=== PATIENT | male | born 1975 | race Hispanic/Latino ===

== ENCOUNTER 2017-12-07 03:30 | Inpatient (IN) | payer SELFPAY ==
[2017-12-07 04:27] LABS: #Basophils 0.1 thou/uL (0.0-0.2); #Eosinphils 0.1 thou/uL (0.0-0.7); #Lymphocytes 2.4 thou/uL (1.20-3.40); #Monocytes 1.4 thou/uL (0.11-0.59); #Neutrophils 9.5 thou/uL (1.40-6.50); %Basophils 0.4 % (0.0-1.0); %Eosinophils 0.4 % (0.0-10.0); %Lymphocytes 18.2 % (21.0-51.0); %Monocytes 10.1 % (0.0-10.0); %Neutrophils 70.9 % (42.0-75.0); Hemoglobin 16.6 g/dL (14.0-18.0); Mean Corpuscular HGB CONC 35.4 g/dL (32.0-36.0); Mean Corpuscular Hemoglobin 35.7 pg (27.0-31.0); Mean Platelet Volume 7.7 fL (7.4-10.4); Platelet Count 211 thou/uL (130-400); RBC Distribution Width 11.2 % (11.5-14.5); Red Blood Cell (RBC) Count 4.65 mill/uL (4.70-6.10); White Blood Cell (WBC) Count 13.3 thou/uL (4.8-10.8)
[2017-12-07] MEDS ORDERED: Fentanyl 100 MCG/2 ML VIAL ONE ×2 (04:35→16:28)
[2017-12-07 05:01] LABS: Anion Gap 10 mmol/L (10-20); BUN (Urea Nitrogen) 8 mg/dL (8.9-20.6); Calc. Creatinine Clearance 0 mL/min (70-130); Calcium 9.6 mg/dL (7.8-10.44); Carbon Dioxide 25 mmol/L (22-29); Chloride 105 mmol/L (98-107); Estimated GFR-MDRD Greater than 90; Glucose 117 mg/dL (70-105); Sodium 136 mmol/L (136-145)
[2017-12-07] MEDS ORDERED: Ondansetron ODT 4 MG TAB ONE (05:59)
[2017-12-07] MEDS ORDERED: Clindamycin/D5W 900 mg/50 ml Premix Bag ONE (05:59)
[2017-12-07] MEDS ORDERED: Morphine 4 MG/ML VIAL ONE (05:59)
[2017-12-07 06:03] LABS: PTT 34.8 SEC (22.9-36.1); Prothrombin Time 13.7 SEC (12.0-14.7)
--- NOTE | 2017-12-07 06:28 | PDOC.FPRHP ---
- History of Present Illness Chief Complaint: Throat pain History of Present Illness: 42 yo M w/no medical hx presents to the ED with complaint of throat pain and swelling. He states that the pain started with a tooth ache on the right side of his mouth on Wednesday. He attempted to control his symptoms with oragel and motrin however the pain and swelling progressively got worse. Additionally, he began to have significant swelling with swallowing. He denies fever, chills, difficulty breathing, feeling like his throat is swelling. He has never had similar symptoms. Upon presentation to the ED a CT neck found submandibular abscess and sialadenitis. ED doc called OMFS who recommended admission for surgical I&D. Pt was given Fentanyl and morphine for pain and started on Clinda 900 q8 per OMFS recommendation. - Allergies/Adverse Reactions Allergies Allergy/AdvReac Type Severity Reaction Status Date / Time No Allergy Information Allergy Unverified 12/07/17 06:41 Available - History PMHx: No significant medical hx PSHx: None FHx: Unk Social: 15 pack year smoking hx 6 beers per day distant hx of cocaine use - Review of Systems General: denies: fever/chills, weight/appetite/sleep changes Eyes: denies: eye pain, vision changes ENT: reports: other (complains of pain with swallowing and throat/jaw swelling) . denies: nasal congestion, rhinorrhea Respiratory: denies: cough, congestion, shortness of breath Cardiovascular: denies: chest pain, palpitation Gastrointestinal: denies: nausea, vomiting Skin: denies: rashes, lesions Musculoskeletal: denies: pain, tenderness Neurological: denies: numbness, syncope Psychological: denies: anxiety, depression - Vital signs BP: 139/98 HR: 84 RR: 19 Tmax: 99 Pox: 99% on RA Wt: 85 kg - Physical Exam Constitutional: NAD, awake, alert and oriented, well developed HEENT: PERRLA, EOMI, grossly normal vision, grossly normal hearing -HEENT: Significant submandibular -Neck: Tender L anterior lymphadenopathy. Heart: RRR, normal S1/S2, no murmurs/rubs/gallops Lungs: CTAB, no respiratory distress Abdomen: soft, non-tender, bowel sounds present Musculoskeletal: normal structure, normal tone Neurological: no focal deficit, CN II-XII intact Skin: no rash/lesions, good turgor Heme/Lymphatic: no unusual bruising or bleeding, no purpura Psychiatric: normal mood and affect, good judgment and insight FMR H&P: Results - Labs Result Diagrams: 12/07/17 04:15 12/07/17 04:15 Lab results: WBC 13.3 thou/uL (4.8-10.8) H 12/07/17 04:15 Hgb 16.6 g/dL (14.0-18.0) 12/07/17 04:15 Hct 46.9 % (42.0-52.0) 12/07/17 04:15 MCV 101.0 fl (80.0-94.0) H 12/07/17 04:15 Plt Count 211 thou/uL (130-400) 12/07/17 04:15 Neutrophils % 70.9 % (42.0-75.0) 12/07/17 04:15 Sodium 136 mmol/L (136-145) 12/07/17 04:15 Potassium 4.0 mmol/L (3.5-5.1) 12/07/17 04:15 Chloride 105 mmol/L (98-107) 12/07/17 04:15 Carbon Dioxide 25 mmol/L (22-29) 12/07/17 04:15 BUN 8 mg/dL (8.9-20.6) L 12/07/17 04:15 Creatinine 0.78 mg/dL (0.6-1.3) 12/07/17 04:15 Glucose 117 mg/dL (70-105) H 12/07/17 04:15 Calcium 9.6 mg/dL (7.8-10.44) 12/07/17 04:15 - EKG Interpretation EKG: NSR, no ST or T wave changes - Radiology Interpretation CT scan - head Status: image reviewed by me, report reviewed by me ( acute right submandibular sialadentitis and floor of mouth abscess, possible sialolithiasis.) FMR H&P: A/P - Problem List (1) Submandibular abscess Current Visit: Yes Status: Acute Priority: High Code(s): K12.2 - CELLULITIS AND ABSCESS OF MOUTH (2) Sialadenitis Current Visit: Yes Status: Acute Priority: High Code(s): K11.20 - SIALOADENITIS, UNSPECIFIED (3) ETOH abuse Current Visit: Yes Status: Chronic Priority: Medium Code(s): F10.10 - ALCOHOL ABUSE, UNCOMPLICATED (4) Tobacco abuse Current Visit: Yes Status: Chronic Priority: Medium Code(s): Z72.0 - TOBACCO USE (5) HTN (hypertension) Current Visit: Yes Status: Acute Priority: Medium Code(s): I10 - ESSENTIAL (PRIMARY) HYPERTENSION (6) Leukocytosis Current Visit: Yes Status: Acute Priority: Medium Code(s): D72.829 - ELEVATED WHITE BLOOD CELL COUNT, UNSPECIFIED - Plan Submandibular abscess and R submandibular sialadentitis - OMFS was consulted from ED. Dr Freed plans to operate this afternoon per ED doc. - NPO now, continue Clinda - morphine for pain control - NS at 125 HTN - secondary to pain. Will work to control pain and monitor vitals Leukocytosis - secondary to infection. Abx as above. Monitor CBC Etoh abuse - ase protocol tobacco abuse - adolescent counselor on cessation Diet NPO PPx SCD Code Full Dispo: Pt is currently stable and awaiting surgical intervention. FMR H&P: Upper Level - Pertinent history 3 day history of increasing jaw pain with progressive dysphagia. Does not have PCP. 6 pack of beer daily and 1/2 pack of cigarettes daily. - Pertinent findings GEN: no acute distress, lying in bed ENT: submandibular tenderness b/l, limited jaw movement. Edema noted in oropharynx CARDIO: RRR, no MRG RESP: no distress, lungs CTA, no wheezing or stridor Abdomen: nontender nondistended. MSK: no LE edema, MAEW - Plan Date/Time: 12/07/17 5005 ISha, have evaluated this patient and agree with findings/plan as outlined by actuarial intern resident. Pertinent changes/additions are listed here. #Submandibular abscess and R sialolithisais. On IV clinda and set for surgery afternoon with OMFS. No respiratory compromise and stable. #ETOH abuse - 6 beers daily, monitor for withdrawal symptoms and medicate as needed. #Tobacco abuse - counseled to stop Attending Addendum - Attending Addendum Date/Time: 12/07/17 9437 I personally evaluated the patient and discussed the management with Dr. Trevizo. I agree with the History, Examination, Assessment and Plan documented above with any addition or exceptions noted below.
[2017-12-07] MEDS ORDERED: Dextrose 5 %-0.45 % NaCl 1,000 ML IV SCH (06:45)
[2017-12-07] MEDS ORDERED: Dexamethasone 4 MG TAB ONE (07:27)
[2017-12-07] MEDS ORDERED: Morphine 4 MG/ML VIAL SLOW IVP PRN (07:51)
[2017-12-07 07:54] VITALS: BMI 25.7
--- NOTE | 2017-12-07 07:58 | RAD ---
CHEST 1 VIEW: Date: 12/07/17 HISTORY: 42-year-old male with history of preoperative evaluation. Patient complains of swelling to throat and difficulty swallowing for several days, as well as swelli ng in groin. COMPARISON: 10/15/13. FINDINGS: Heart size is normal. The lungs are clear. There is a small, circumscribed, fairly dense opacity over lying the left upper lateral chest, possibly an artifact. I do not thing that this is within the ches t. It was not present on prior study. IMPRESSION: No acute intrathoracic disease. POS: OFF
[2017-12-07] MEDS ORDERED: Diazepam 5 MG TAB PO PRN (08:06)
[2017-12-07] MEDS ORDERED: Diazepam 5 MG TAB PO SCH (08:15)
[2017-12-07] MEDS ORDERED: Thiamine HCl 200 MG/2 ML VIAL IM SCH (08:15)
--- NOTE | 2017-12-07 09:12 | CT ---
PRELIMINARY REPORT/[facility]/EMERGENCY AFTER HOURS PROCEDURE: EXAM: CT Neck With Intravenous Contrast EXAM DATE/TIME: Exam ordered 12/07/2017 4:34 AM CLINICAL HISTORY: 42 years old, male; Pain; Neck pain and painful swallowing; Patient HX: M42 presents to ed for throat swelling. Pt reports swelling around his throat/neck for 2 days. Pt denies health complications or a llergies. TECHNIQUE: Axial computed tomography images of the neck with intravenous contrast. COMPARISON: No relevant prior studies available. FINDINGS: Oropharynx: Normal. No significant tonsillar enlargement. No peritonsillar abscess. Hypopharynx: Normal. Larynx: Normal. Normal epiglottis. Trachea: Normal. Retropharyngeal space: Normal. Submandibular/parotid glands: There is enlargement and stranding of the RIGHT submandibular gland wit h dilatation of [place]'s duct with rim enhancing collection involving the floor of mouth probably ex tending into the mylohyoid muscle and possibly into the digastric muscle inferiorly although planes are somewhat obscured. Thyroid: Normal. No enlarged or calcified nodules. Bones/joints: focal calcification seen distally at the base of the mandible possibly representing nnamdi lolithiasis. No acute fracture. Soft tissues: See above. Vasculature: No acute findings. Lymph nodes: Normal. No lymphadenopathy. Lung apices: Unremarkable as visualized. IMPRESSION: 1. Acute RIGHT submandibular sialadenitis and floor of mouth abscess as above. 2. Possible sialolithiasis as above. Thank you for allowing us to participate in the care of your patient. Dictated and Authenticated by: Devan Lam MD 12/07/2017 5:03 AM Central Time ([place] & [place]) FINAL REPORT CT NECK WITH CONTRAST: Date: 12/07/17 Multiple axial tomograms obtained through the neck with IV enhancement. FINDINGS: There is inflammation and evidence of edema involving the right submandibular gland with enlargement. There is rim enhancement along the right Cornel's duct and there is abnormal fluid dense collection seen along this duct in the right sublingual space which could represent abscess formation as noted on the preliminary report. There is cervical adenopathy with enlarged lymph nodes along the cervical chains bilaterally, more prominent on the right. I am in agreement with the preliminary report issued by [facility]. POS: ALISON
[2017-12-07] MEDS: Sodium Chloride 0.9% 1,000 ML IV SCH ×2 (09:44→20:25)
[2017-12-07] MEDS: Morphine 4 MG/ML VIAL SLOW IVP PRN ×2 (09:48→20:32)
[2017-12-07] MEDS: Folic Acid 1 MG TAB PO SCH (09:59)
[2017-12-07] MEDS: Multivitamin W/ Minerals 1 TAB PO SCH (09:59)
[2017-12-07] MEDS ORDERED: ISOVUE-370 76%-LOCM 1 ML ONE (10:58)
[2017-12-07] MEDS ORDERED: Lidocaine 1% PF 5 ML VIAL ONE (11:09)
[2017-12-07] MEDS ORDERED: Ondansetron HCl/PF 4 MG/2 ML Vial ONE (11:09)
[2017-12-07] MEDS ORDERED: Succinylcholine Chloride 20 MG/ML 10 ml SYRINGE FS ONE (11:09)
[2017-12-07] MEDS ORDERED: PROPOFOL 200 MG/20 ML VIAL ONE (11:09)
[2017-12-07] MEDS: Clindamycin/D5W 900 MG in Premix Bag 1 BAG IVPB SCH ×2 (15:35→21:49)
[2017-12-07] MEDS ORDERED: Lidocaine 1% w/Epinephrine 1:100K 30 ML VIAL ONE (16:19)
[2017-12-07] MEDS ORDERED: Chlorhexidine Gluconate 15 ML UDCUP SSP ONE (16:19)
[2017-12-07] MEDS ORDERED: Midazolam HCl 2 mg/2 ml Vial ONE (16:28)
[2017-12-07] MEDS ORDERED: Oxymetazoline HCl 0.05% ( 15 ML ) ONE (16:28)
[2017-12-07] MEDS ORDERED: Lidocaine 2% Jelly 5 ML TUBE ONE (16:42)
--- NOTE | 2017-12-07 19:10 | OP ---
DATE OF PROCEDURE: 12/07/2017 PREOPERATIVE DIAGNOSES: 1. Abscess tooth #32. 2. Right sublingual abscess. POSTOPERATIVE DIAGNOSES: 1. Abscess tooth #32. 2. Right sublingual abscess. PROCEDURES PERFORMED: 1. Extraction of tooth #32. 2. Intraoral incision and drainage of sublingual abscess. ANESTHESIA: General nasoendotracheal anesthesia. INDICATIONS FOR PROCEDURE: The patient had a 3-day history of worsening tooth pain and swelling with CT confirmation of odontogenic abscess with small fluid collection requiring intervention in the ope rating room. The risks, benefits, and alternatives of the procedure were discussed with the patient in detail. Patient agrees with the plan for operative intervention and informed consent was obtained . PROCEDURE PERFORMED: Patient was transferred to the operating room and to the OR table where a safet y belt was secured. ASA monitors were attached and the patient was noted to have stable vital signs. IV induction by Anesthesia with nasoendotracheal intubation x1 without complication. The tube was secured in a standard head wrap fashion and a timeout was performed. The patient was prepped and adrianna ped in a sterile fashion. The oropharynx was thoroughly suctioned. A moistened Ray-Geron[place] throat pack was placed. Peridex mouth rinse was used throughout the oral cavity, 1% lidocaine with 1:100,000 epi nephrine was administered as a right inferior alveolar nerve block, lingual nerve block and buccal ne rve block. A 15-blade was used for a buccal and lingual full thickness mucoperiosteal flap. Purulen ce was noted from the sulcus of tooth #32 with palpable mobility of the tooth. Simple extraction was performed with a forceps with purulence from the socket. Copious amounts of inflammatory tissue wer e curetted from the socket and there was found to be a perforation in the lingual cortical plate in t he socket of tooth #32. Blunt subperiosteal dissection was then continued down the lingual aspect of the mandible with another mild amount of purulence from the wound down to the inferior border of the mandible. Copious irrigation with normal saline was performed within the wound and a quarter inch P enrose drain was placed and secured with a 2-0 silk suture. Then, a 4-0 Vicryl suture was used for r eapproximation of the gingival flap. The oropharynx was thoroughly suctioned and the moistened Ray-T ec throat pack was removed. Gauze pack was placed for hemostasis and this concluded the procedure. The patient was turned over to Anesthesia where he was extubated in the room and returned to the PACU in stable condition. FLUIDS: See anesthesia records. ESTIMATED BLOOD LOSS: 30 mL DRAINS: Quarter-inch [place] drain to the right sublingual space. IMPLANTS: None. SPECIMENS: Cultures of the abscess were sent. IMPLANTS: None. COUNTS: Needle, sponge count verified as correct. COMPLICATIONS: None.
[2017-12-07] MEDS: Chlorhexidine Gluconate 15 ML UDCUP SSP SCH (20:25)
--- NOTE | 2017-12-07 21:16 | CON ---
DATE OF CONSULTATION: 12/07/2017 HISTORY OF PRESENT ILLNESS: This is a 42-year-old male with a reported history of tooth pain beginni ng this past Wednesday with worsening symptoms and swelling throughout the weekend leading to difficulty swallowing with neck pain leading the patient to visit the emergency room. A CT of the neck found l ocalized abscess in the floor of the mouth as well as sialadenitis. Oral Surgery was consulted for s urgical intervention. PAST MEDICAL HISTORY: Denies. MEDICATIONS: Denies. ALLERGIES: NKDA. PAST SURGICAL HISTORY: Denies. SOCIAL HISTORY: The patient reports a 1.5 packs of cigarettes per day. Alcohol six beers per day. Denies recreational drug use. Works for a construction company. REVIEW OF SYSTEMS: Reports right-sided tooth and jaw pain. Elevated floor of mouth in discomfort wh en swallowing. PHYSICAL EXAMINATION: VITAL SIGNS: Within normal limits. The patient is afebrile. GENERAL: Awake, alert, oriented in no acute distress, lying in bed comfortably. HEAD: Normocephalic. EYES: Pupils equal, round, reactive to light. Extraocular movements intact. Visual acuity grossly intact. EARS: Within normal limits. NOSE: Within normal limits. THROAT: Trach midline. HEENT: Tenderness to palpation along the right submandibular region. The inferior border of the man dible is palpable along its entire length. There is no buccal edema on the right side of the face. Intraoral exam reveals limited mandibular range of motion secondary to pain. There is a soft o n the patient is forced open. Tongue has full range of motion. The floor of mouth is edematous with no induration. There is tenderness to palpation of tooth #32. No intraoral purulence is appreciate d. LABORATORY DATA: White blood cell count 13.3, hemoglobin 16.6, hematocrit 46.9, platelets 211, gluco se 117. CT of the neck reveals periapical radiolucency associated with the roots of tooth #2 with an associated perforation into the lingual cortex. There is a small fluid collection in the floor of t he mouth with generalized edema of the floor of mouth and submandibular region as well consistent wit h the clinical findings. ASSESSMENT: A 42-year-old male with acute odontogenic abscess. PLAN: The patient will be taken to the operating room this afternoon for extraction of indicated hetal th and incision and drainage of abscess. The patient will remain n.p.o. for now. Recommend clindamy michell IV.
[2017-12-08] MEDS: Sodium Chloride 0.9% 1,000 ML IV SCH ×2 (01:45→09:11)
[2017-12-08] MEDS ORDERED: Diazepam 5 MG TAB PO PRN (04:00)
[2017-12-08] MEDS: Clindamycin/D5W 900 MG in Premix Bag 1 BAG IVPB SCH ×3 (05:11→21:05)
[2017-12-08 05:13] LABS: #Basophils 0.1 thou/uL (0.0-0.2); #Lymphocytes 2.5 thou/uL (1.20-3.40); #Monocytes 1.6 thou/uL (0.11-0.59); #Neutrophils 11.5 thou/uL (1.40-6.50); %Basophils 0.4 % (0.0-1.0); %Eosinophils 0.2 % (0.0-10.0); %Lymphocytes 15.7 % (21.0-51.0); %Monocytes 10.2 % (0.0-10.0); %Neutrophils 73.6 % (42.0-75.0); Mean Corpuscular HGB CONC 34.9 g/dL (32.0-36.0); Mean Corpuscular Hemoglobin 35.9 pg (27.0-31.0); Mean Platelet Volume 8.1 fL (7.4-10.4); Platelet Count 230 thou/uL (130-400); RBC Distribution Width 11.2 % (11.5-14.5); Red Blood Cell (RBC) Count 4.19 mill/uL (4.70-6.10); White Blood Cell (WBC) Count 15.6 thou/uL (4.8-10.8)
[2017-12-08 05:20] LABS: Anion Gap 10 mmol/L (10-20); BUN (Urea Nitrogen) 11 mg/dL (8.9-20.6); Calc. Creatinine Clearance 147 mL/min (70-130); Calcium 9.3 mg/dL (7.8-10.44); Carbon Dioxide 25 mmol/L (22-29); Chloride 106 mmol/L (98-107); Estimated GFR-MDRD Greater than 90; Glucose 120 mg/dL (70-105); Potassium 4.1 mmol/L (3.5-5.1); Sodium 137 mmol/L (136-145)
--- NOTE | 2017-12-08 07:48 | PDOC.FM ---
- Subjective Subjective: No significant overnight events. Patient reports his pain has not improved. He is having difficulty swallowing, presumably due to swelling as he does not endorse a significant amount of pain when swallowing. Patient is having difficulty opening his mouth fully 2/2 pain in submandibular region. He reports that he feels worse than he did yesterday. He has not received any pain medications this morning. - Objective MAR Reviewed: Yes Vital Signs & Weight: Vital Signs (12 hours) Temp Pulse Resp BP BP Pulse Ox 12/08/17 07:14 98.0 F 76 16 132/87 96 12/08/17 04:15 98.6 F 69 16 123/83 96 12/07/17 23:54 99.3 F 77 16 134/83 96 12/07/17 20:00 99.1 F 85 20 139/88 95 Weight Weight 83.915 kg I&O: 12/07/17 12/08/17 12/09/17 06:59 06:59 06:59 Intake Total 1815 Balance 1815 Result Diagrams: 12/08/17 04:18 12/08/17 04:18 EKG Reviewed by me: No Radiology Reviewed by me: No <Lisa Jeffers - Last Filed: 12/08/17 08:42> - Objective Vital Signs & Weight: Vital Signs (12 hours) Temp Pulse Resp BP BP BP Pulse Ox 12/08/17 11:07 98.9 F 74 16 126/82 96 12/08/17 09:06 132/87 12/08/17 08:00 98.0 F 76 16 12/08/17 07:14 98.0 F 76 16 132/87 96 12/08/17 04:15 98.6 F 69 16 123/83 96 12/07/17 23:54 99.3 F 77 16 134/83 96 Weight Weight 83.915 kg I&O: 12/07/17 12/08/17 12/09/17 06:59 06:59 06:59 Intake Total 1815 Balance 1815 Result Diagrams: 12/08/17 04:18 12/08/17 04:18 <Syd August - Last Filed: 12/08/17 11:28> Phys Exam - Physical Examination Constitutional: NAD HEENT: PERRLA, moist MMs Submandibular tenderness and swelling b/l Unable to open mouth fully, purulence where tooth extracted Neck: supple, full ROM Respiratory: no wheezing, clear to auscultation bilateral Cardiovascular: RRR, no significant murmur Gastrointestinal: soft, non-tender, no distention, positive bowel sounds Musculoskeletal: no edema, pulses present Neurological: non-focal, moves all 4 limbs Psychiatric: normal affect, A&O x 3 Skin: normal turgor, cap refill <2 seconds <Lisa Jeffers - Last Filed: 12/08/17 08:42> Dx/Plan (1) Submandibular abscess Code(s): K12.2 - CELLULITIS AND ABSCESS OF MOUTH Status: Acute (2) Sialadenitis Code(s): K11.20 - SIALOADENITIS, UNSPECIFIED Status: Acute (3) Leukocytosis Code(s): D72.829 - ELEVATED WHITE BLOOD CELL COUNT, UNSPECIFIED Status: Acute (4) HTN (hypertension) Code(s): I10 - ESSENTIAL (PRIMARY) HYPERTENSION Status: Chronic (5) ETOH abuse Code(s): F10.10 - ALCOHOL ABUSE, UNCOMPLICATED Status: Chronic (6) Tobacco abuse Code(s): Z72.0 - TOBACCO USE Status: Chronic - Plan Plan: Submandibular abscess and R submandibular sialadentitis - OMFS was consulted from ED; appreciate recs - Post op day #1 s/p extraction of tooth #32 and intraoral I&D of sublingual abscess - continue Clindamycin IV - morphine for pain control - NS at 125; can d/c once tolerating PO - Will give solumedrol 125 mg for edema HTN - likely secondary to pain - BP this AM 123/83 - Will work to control pain and monitor vitals Leukocytosis - secondary to infection - Abx as above - Monitor CBC EtoH abuse - ASE protocol - No ASE scores documented to date; will touch base with nurses to ensure this is being documented appropriately Tobacco abuse - employment counselor on cessation PPx: SCDs (pt ambulatory, non-obese, no prior history of VTE), encourage routine ambulation Code Status: Full Dispo: Pt is currently stable. Post op day #1. Further recs per OMFS. <Lisa Jeffers - Last Filed: 12/08/17 08:42> Attending Addendum - Attending Addendum Date/Time: 12/08/17 1127 I personally evaluated the patient and discussed the management with Dr. Jeffers and team. I agree with and repeated the History, Examination, Assessment and Plan documented above with any addition or exceptions noted below. Improved from this morning. He has been able to swallow food since he was prerounded on this morning. Continue antibiotics, monitor respiratory status. <Syd August - Last Filed: 12/08/17 11:28>
[2017-12-08] MEDS ORDERED: methylPREDNISolone Sod Succ/PF 125 MG/2 ML VIAL IVP SCH (08:45)
[2017-12-08] MEDS: Magnesium Oxide 400 MG TAB PO SCH (09:10)
[2017-12-08] MEDS: Folic Acid 1 MG TAB PO SCH (09:10)
[2017-12-08] MEDS: Chlorhexidine Gluconate 15 ML UDCUP SSP SCH ×2 (09:10→21:06)
[2017-12-08] MEDS: Multivitamin W/ Minerals 1 TAB PO SCH (09:10)
[2017-12-08] MEDS ORDERED: Ketorolac Tromethamine 30 MG/ML VIAL IVP SCH (13:45)
[2017-12-08] MEDS: Lactated Ringer's 1,000 ML IV SCH ×2 (16:49→21:05)
[2017-12-08] MEDS ORDERED: Ketorolac Tromethamine 30 MG/ML VIAL IVP PRN (19:00)
[2017-12-09] MEDS: Clindamycin/D5W 900 MG in Premix Bag 1 BAG IVPB SCH ×2 (05:35→14:45)
--- NOTE | 2017-12-09 08:53 | PDOC.FM ---
- Subjective Subjective: Patient doing well this AM. No significant overnight events. Patient is able to swallow with minimal difficulty. His pain has improved. Pt states that OMFS stopped by last night and told him there is a drain in place that needs to be removed today. - Objective MAR Reviewed: Yes Vital Signs & Weight: Vital Signs (12 hours) Temp Pulse Resp BP Pulse Ox 12/09/17 07:30 98.4 F 59 L 20 122/81 96 12/09/17 04:13 97.9 F 53 L 16 117/75 97 12/09/17 00:00 98.2 F 58 L 14 114/73 95 12/08/17 21:01 98.7 F 61 18 116/74 95 Weight Weight 83.915 kg I&O: 12/08/17 12/09/17 12/10/17 06:59 06:59 06:59 Intake Total 1814 1779 Balance 1814 1779 Result Diagrams: 12/08/17 04:18 12/08/17 04:18 EKG Reviewed by me: No Radiology Reviewed by me: No <Lisa Jeffers - Last Filed: 12/09/17 08:51> - Objective Vital Signs & Weight: Vital Signs (12 hours) Temp Pulse Resp BP Pulse Ox 12/09/17 07:30 98.4 F 59 L 20 122/81 96 12/09/17 04:13 97.9 F 53 L 16 117/75 97 Weight Weight 83.915 kg I&O: 12/08/17 12/09/17 12/10/17 06:59 06:59 06:59 Intake Total 1814 1779 Balance 1814 1779 Result Diagrams: 12/08/17 04:18 12/08/17 04:18 <Jeferson Lisa - Last Filed: 12/09/17 12:05> Phys Exam - Physical Examination Constitutional: NAD HEENT: PERRLA, moist MMs, sclera anicteric bilateral submandibular tenderness, able to open jaw more than yest. Neck: supple Respiratory: no wheezing, clear to auscultation bilateral Cardiovascular: RRR, no significant murmur Gastrointestinal: soft, no distention, positive bowel sounds Musculoskeletal: no edema, pulses present Neurological: non-focal, normal sensation Psychiatric: normal affect, A&O x 3 Skin: no rash, cap refill <2 seconds <Lisa Jeffers - Last Filed: 12/09/17 08:51> Dx/Plan (1) Submandibular abscess Code(s): K12.2 - CELLULITIS AND ABSCESS OF MOUTH Status: Acute (2) Sialadenitis Code(s): K11.20 - SIALOADENITIS, UNSPECIFIED Status: Acute (3) Leukocytosis Code(s): D72.829 - ELEVATED WHITE BLOOD CELL COUNT, UNSPECIFIED Status: Acute (4) HTN (hypertension) Code(s): I10 - ESSENTIAL (PRIMARY) HYPERTENSION Status: Chronic (5) ETOH abuse Code(s): F10.10 - ALCOHOL ABUSE, UNCOMPLICATED Status: Chronic (6) Tobacco abuse Code(s): Z72.0 - TOBACCO USE Status: Chronic - Plan Plan: Submandibular abscess and R submandibular sialadentitis - OMFS was consulted from ED; appreciate recs - Post op day #2 s/p extraction of tooth #32 and intraoral I&D of sublingual abscess - continue Clindamycin IV - morphine for pain control - d/c fluids - Wound cultures pending High BP without diagnosis of HTN - likely secondary to pain - BP this AM 122/81 - Will work to control pain and monitor vitals Leukocytosis - secondary to infection - Will not continue to check as abscess has been drained and pt asymptomatic EtoH abuse - ASE protocol - ASE scores have been 1 Tobacco abuse - genetic counsellor on cessation PPx: SCDs (pt ambulatory, non-obese, no prior history of VTE), encourage routine ambulation Code Status: Full Dispo: Pt is currently stable. Post op day #2. Further recs per OMFS. Consider discharge home today. <Lisa Jeffers - Last Filed: 12/09/17 08:51> Attending Addendum - Attending Addendum Date/Time: 12/09/17 1204 I personally evaluated the patient and discussed the management with Dr. Jeffers. I agree with the History, Examination, Assessment and Plan documented above with any addition or exceptions noted below. Patient improved, will transition pain control to PO. Awaiting further recs from OMFS. <Jeferson Lisa R - Last Filed: 12/09/17 12:05>
[2017-12-09] MEDS: Magnesium Oxide 400 MG TAB PO SCH (09:06)
[2017-12-09] MEDS: Folic Acid 1 MG TAB PO SCH (09:06)
[2017-12-09] MEDS: Chlorhexidine Gluconate 15 ML UDCUP SSP SCH ×2 (09:06→21:21)
[2017-12-09] MEDS: Multivitamin W/ Minerals 1 TAB PO SCH (09:06)
[2017-12-09] MEDS: Ampicillin/Sulbactam 3 GM in Sodium Chloride 0.9% 100 ML IVPB SCH ×2 (18:46→23:32)
[2017-12-10] MEDS: Ampicillin/Sulbactam 3 GM in Sodium Chloride 0.9% 100 ML IVPB SCH (05:40)
[2017-12-10 05:49] VITALS: BP 125/79
--- NOTE | 2017-12-10 07:39 | PDOC.FM ---
- Subjective Subjective: Patient doing well this AM. No significant overnight events. Patient is able to tolerate PO with minimal difficulty. His pain is well controlled. Swelling has improved. Patient denies shortness of breath, chest pain, headache, or palpitations. - Objective MAR Reviewed: Yes Vital Signs & Weight: Vital Signs (12 hours) Temp Pulse Resp BP Pulse Ox 12/10/17 04:00 97.6 F 62 20 125/79 95 12/10/17 00:01 97.9 F 54 L 20 133/90 95 12/09/17 20:00 98.7 F 63 20 127/75 95 Weight Weight 83.915 kg I&O: 12/09/17 12/10/17 12/11/17 06:59 06:59 06:59 Intake Total 1780 690 Balance 1780 690 Result Diagrams: 12/08/17 04:18 12/08/17 04:18 EKG Reviewed by me: Yes Radiology Reviewed by me: Yes <Lisa Jeffers - Last Filed: 12/10/17 09:10> - Objective Vital Signs & Weight: Vital Signs (12 hours) Temp Pulse Resp BP BP Pulse Ox 12/10/17 08:15 98.2 F 57 L 12 12/10/17 08:00 98.2 F 57 L 12 125/79 97 12/10/17 04:00 97.6 F 62 20 125/79 95 Weight Weight 83.915 kg I&O: 12/09/17 12/10/17 12/11/17 06:59 06:59 06:59 Intake Total 1780 690 Balance 1780 690 Result Diagrams: 12/08/17 04:18 12/08/17 04:18 <Santana Nelson - Last Filed: 12/10/17 12:10> Phys Exam - Physical Examination Constitutional: NAD HEENT: moist MMs, sclera anicteric Bilateral submandibular swelling and tenderness, improved Neck: supple Respiratory: no wheezing, clear to auscultation bilateral Cardiovascular: RRR, no significant murmur Gastrointestinal: soft, no distention, positive bowel sounds Musculoskeletal: no edema, pulses present Neurological: non-focal, moves all 4 limbs Psychiatric: normal affect, A&O x 3 Skin: no rash, cap refill <2 seconds <Lisa Jeffers - Last Filed: 12/10/17 09:10> Dx/Plan (1) Submandibular abscess Code(s): K12.2 - CELLULITIS AND ABSCESS OF MOUTH Status: Acute (2) Sialadenitis Code(s): K11.20 - SIALOADENITIS, UNSPECIFIED Status: Acute (3) Leukocytosis Code(s): D72.829 - ELEVATED WHITE BLOOD CELL COUNT, UNSPECIFIED Status: Acute (4) HTN (hypertension) Code(s): I10 - ESSENTIAL (PRIMARY) HYPERTENSION Status: Chronic (5) ETOH abuse Code(s): F10.10 - ALCOHOL ABUSE, UNCOMPLICATED Status: Chronic (6) Tobacco abuse Code(s): Z72.0 - TOBACCO USE Status: Chronic - Plan Plan: Submandibular abscess and R submandibular sialadentitis - OMFS was consulted from ED; appreciate recs - Post op day #3 s/p extraction of tooth #32 and intraoral I&D of sublingual abscess - d/c'd Clindamycin IV yesterday - Toradol for pain control - d/c fluids - Wound cultures positive for H. influenza; abx switched to unasyn - Pt to go home on augmentin High BP without diagnosis of HTN - likely secondary to pain - Will work to control pain and monitor vitals Leukocytosis - secondary to infection - Will not continue to check as abscess has been drained and pt asymptomatic EtoH abuse - ASE protocol - ASE scores have been 1 Tobacco abuse - admissions counselor on cessation PPx: SCDs (pt ambulatory, non-obese, no prior history of VTE), encourage routine ambulation Code Status: Full Dispo: Pt is currently stable. Post op day #3. Further recs per OMFS. Consider discharge home today on oral antibiotics. <Lisa Jeffers - Last Filed: 12/10/17 09:10> (1) Submandibular abscess Code(s): K12.2 - CELLULITIS AND ABSCESS OF MOUTH Status: Acute (2) Sialadenitis Code(s): K11.20 - SIALOADENITIS, UNSPECIFIED Status: Acute (3) ETOH abuse Code(s): F10.10 - ALCOHOL ABUSE, UNCOMPLICATED Status: Chronic (4) Tobacco abuse Code(s): Z72.0 - TOBACCO USE Status: Chronic (5) HTN (hypertension) Code(s): I10 - ESSENTIAL (PRIMARY) HYPERTENSION Status: Chronic (6) Leukocytosis Code(s): D72.829 - ELEVATED WHITE BLOOD CELL COUNT, UNSPECIFIED Status: Acute <Santana Nelson - Last Filed: 12/10/17 12:10> Attending Addendum - Attending Addendum Date/Time: 12/10/17 1210 I personally evaluated the patient and discussed the management with Dr. Vanessa. I agree with the History, Examination, Assessment and Plan documented above with any addition or exceptions noted below. <Santana Nelson - Last Filed: 12/10/17 12:10>
[2017-12-10 08:15] VITALS: TEMP 98.2
[2017-12-10] MEDS: Multivitamin W/ Minerals 1 TAB PO SCH (08:22)
[2017-12-10] MEDS: Folic Acid 1 MG TAB PO SCH (08:22)
[2017-12-10] MEDS: Magnesium Oxide 400 MG TAB PO SCH (08:22)
[2017-12-10] MEDS: Chlorhexidine Gluconate 15 ML UDCUP SSP SCH (08:22)
[2017-12-10] MEDS: Lactated Ringer's 1,000 ML IV SCH (08:46)
--- NOTE | 2017-12-11 05:27 | DIS-2 ---
DATE OF ADMISSION: 12/07/2017 DATE OF DISCHARGE: 12/10/2017 ADMITTING ATTENDING: Dr. Michelle Rizzo. DISCHARGE ATTENDING: Dr. Santana Nelson. RESIDENT: Dr. Lisa Jeffers. CONSULTATIONS: Oral Surgery, Dr. Rajeev Freed. PROCEDURES: 1. Soft tissue neck CT showed inflammation and evidence of edema involving right submandibular gland with enlargement. There is rim enhancement along the right Clyde's duct and there is abnormal flu id dense collection seen along the duct in the right sublingual space, which could represent abscess formation. There is cervical adenopathy with enlarged lymph nodes: Normal cervical chains bilateral ly, more prominent on the right. 2. Chest x-ray, no acute intrathoracic disease. 3. Extraction of tooth #32. 4. Intraoral incision and drainage of sublingual abscess with quarter-inch [place] drain to the righ t sublingual space. 5. Removal of quarter-inch [place] drain to right sublingual space. PRIMARY DIAGNOSES: 1. Abscess of tooth #32. 2. Right sublingual abscess. DISCHARGE MEDICATIONS: 1. Augmentin 875/125 one tablet p.o. b.i.d. for 10 days. 2. Folic acid 1 mg p.o. daily. 3. Multivitamin with minerals 1 tablet p.o. daily. 4. Thiamine 100 mg p.o. daily. HISTORY OF PRESENT ILLNESS AND HOSPITAL COURSE: This is a 42-year-old male with known past medical h istory, who presents to the emergency department with complaint of throat pain and swelling. He stat es that the pain started with toothache on the right side of his mouth on Wednesday prior to admission. He attempted to control symptoms with Orajel and Motrin; however, the pain and swelling progressivel y got worse. Additionally, began to have significant swelling with swallowing. He denied fever, chi lls, difficulty breathing, or feeling like his throat is swelling. He has never had similar symptoms in the past. Upon presentation to the ED, a CT neck found sublingual abscess. ED doctor called [facility] who recommended admission for surgical incision and drainage. Patient was gi ramón fentanyl and morphine for pain and started on clindamycin 900 q.8 hours as per Oral Maxillofacial Surgery recommendations. The patient remained stable throughout the course of his hospital stay on 12/07/2017. Patient had extraction of tooth #32 with intraoral incision and drainage of sublingual a bscess. He was continued on the clindamycin. Wound cultures were obtained. Marie drain was place d at the time of the I and D. This was removed on 12/09/2017. The patient was without complications during his hospital stay; however, postoperatively day #1, the patient was having difficulty swallow ing. He just felt as though his throat was little swollen. He was given 125 mg of Solu-Medrol that seemed to resolve the symptoms and he did not have any recurrent symptoms after that. Culture micro evidence of sensitivities did result, which grew out Haemophilus influenza, not sensitive to clindamy michell. Therefore, the patient was switched to Unasyn. Patient was given several doses of IV Unasyn an d then transitioned to Augmentin upon discharge from hospital. The patient was told to continue taki ng the Augmentin as scheduled to complete the entire course. DISPOSITION: Stable. DISCHARGE INSTRUCTIONS: 1. Location: Home. 2. Diet: Regular. 3. Activity: As tolerated. 4. Discharge instructions: The patient is to follow with Dr. Freed, the oral maxillofacial surgeon within 7 days of discharge from the hospital. Patient was agreeable with plan.
== END 2017-12-10 12:54 | disposition home or self-care (01) | DRG 158 ==
LOC: ERS 03:30 → SURG A 05:55
PROVIDERS: ADMIT Student in an Organized Health Care Education/Training Program; ATTEND Student in an Organized Health Care Education/Training Program
PROC: 0W9330Z Drainage of Oral Cavity and Throat with Drainage Device, Percutaneous Approach (ICD-10-PCS; principal; 2017-12-07)
PROC: 0CDXXZ0 Extraction of Lower Tooth, Single, External Approach (ICD-10-PCS; 2017-12-07)
DX: K04.7 Periapical abscess without sinus (principal); K12.2 Cellulitis and abscess of mouth; B96.3 Hemophilus influenzae [H. influenzae] as the cause of diseases classified elsewhere; K11.20 Sialoadenitis, unspecified; D72.829 Elevated white blood cell count, unspecified; F17.210 Nicotine dependence, cigarettes, uncomplicated; F10.10 Alcohol abuse, uncomplicated; R03.0 Elevated blood-pressure reading, without diagnosis of hypertension; F14.21 Cocaine dependence, in remission
CPT/HCPCS: 36415; 70491; 71045; 80048; 85025; 85610; 85730; 86850; 86900; 86901; 87070; 87076; 87077; 87205; 93005; 96361; 96365; 96375; A4216; J0295; J1885; J2001; J2250; J2270; J2405; J2704; J2930; J3010; J3411; J3475; J3490; J7050; J8540; Q0162